=== PATIENT | male | born 2000 | race Caucasian/White ===

== ENCOUNTER 2020-12-15 18:41 | Emergency (ER) | payer BC ==
[~2020-12-15] VITALS: Ht 180.3 cm; Wt 70.3 kg
[2020-12-15 18:46] VITALS: BP 136/89
[2020-12-15] MEDS ORDERED: KETOROLAC 30 MG/ML VIAL IM ONE (19:30)
--- NOTE | 2020-12-15 19:37 | NUR ---
PT TAKEN TO RAD VIA W/C
--- NOTE | 2020-12-15 19:38 | NUR ---
NORIS POTTS WITH PT
[2020-12-15] MEDS ORDERED: METH-1681 PO (20:26)
[2020-12-15] MEDS ORDERED: NAPR-54 PO (20:26)
--- NOTE | 2020-12-15 20:50 | NUR ---
Patient discharged with v/s stable. Written and verbal after care instructions given and explained. Patient alert, oriented and verbalized understanding of instructions. Ambulatory with steady gait. All questions addressed prior to discharge. ID band removed. Patient advised to follow up with PMD. Rx of NAPROXEN AND ROBAXIN given. Patient educated on indication of medication including possible reaction and side effects. Opportunity to ask questions provided and answered.
== END 2020-12-15 20:50 | disposition home or self-care (01) ==
LOC: MED 18:41
DX: S16.1XXA Strain of muscle, fascia and tendon at neck level, initial encounter (principal); S80.11XA Contusion of right lower leg, initial encounter; S20.219A Contusion of unspecified front wall of thorax, initial encounter; Z79.899 Other long term (current) drug therapy; V89.2XXA Person injured in unspecified motor-vehicle accident, traffic, initial encounter; Y93.89 Activity, other specified; Y92.89 Other specified places as the place of occurrence of the external cause; Y99.8 Other external cause status
CPT/HCPCS: 71045; 72050; 73590; 96372; 99284; J1885